=== PATIENT | female | born 1995 | race Caucasian/White ===

== ENCOUNTER → 2024-10-08 06:56 | Outpatient (REF) | payer BC, SELFPAY | LOC: PNTC 06:56 | PROVIDERS: ATTENDING PHYSICIAN Obstetrics & Gynecology | DX: Z34.90 Encounter for supervision of normal pregnancy, unspecified, unspecified trimester (principal) | CPT/HCPCS: 76805; 76817 ==

== ENCOUNTER 2025-02-15 01:13 | Inpatient (IN) | payer BC, SELFPAY ==
[2025-02-15 01:47] VITALS: BP 126/76; BMI 31.8
[2025-02-15] MEDS: LR 1000 IV ×2 (01:56→06:04)
[2025-02-15 02:29] LABS: Hematocrit 34.5 % (37.0-47.0); Hemoglobin 11.7 g/dL (12.0-16.0); Mean Corp Hgb Conc. 33.9 g/dL (33.0-37.0); Mean Corpuscular Volume 86.9 fL (81.0-99.0); Nucleated Red Blood Cells % 0 %; Platelet Count 214 10^3/uL (130-400); Red Cell Dist. Width 12.9 % (11.5-14.5)
[2025-02-15] MEDS: SUBLIMAZE 100 MCG EPIDURAL (06:38)
[2025-02-15] MEDS: FENTANYL/BUPIVACAINE 100 EPIDURAL (06:39)
[2025-02-15] MEDS: PITOCIN 30 UNITS/NSS 500 ML IV (08:16)
[2025-02-15] MEDS: TRANEXAMIC ACID 100 IV (08:30)
[2025-02-15] MEDS: COLACE PO (21:41)
[2025-02-16 05:47] LABS: Hematocrit 34.1 % (37.0-47.0); Hemoglobin 11.1 g/dL (12.0-16.0)
[2025-02-16] MEDS: COLACE 100 MG PO ×2 (08:02→20:00)
[2025-02-16] MEDS: PRENATAL PLUS 1 TABLET PO (08:02)
[2025-02-17] MEDS: MOTRIN 600 MG PO (07:10)
[2025-02-17] MEDS: COLACE 100 MG PO (09:28)
[2025-02-17] MEDS: PRENATAL PLUS 1 TABLET PO (09:28)
[2025-02-17 14:04] LABS: Syphilis/T. pallidum Ab Reflex Negative (Negative)
== END 2025-02-17 12:15 | disposition home or self-care (01) | DRG 807 ==
LOC: LDRP 01:13
PROVIDERS: ADMITTING PHYSICIAN Obstetrics & Gynecology
PROC: 10E0XZZ Delivery of Products of Conception, External Approach (ICD-10-PCS; 2025-02-15)
PROC: 0KQM0ZZ Repair Perineum Muscle, Open Approach (ICD-10-PCS; 2025-02-15)
PROC: 10907ZC Drainage of Amniotic Fluid, Therapeutic from Products of Conception, Via Natural or Artificial Opening (ICD-10-PCS; 2025-02-15)
DX: O70.1 Second degree perineal laceration during delivery (principal); Z37.0 Single live birth; Z3A.39 39 weeks gestation of pregnancy
CPT/HCPCS: 85014; 85018; 85025; 86780; 86850; 86900; 86901; 88307